=== PATIENT | male | born 1980 | race Two or more races ===

== ENCOUNTER 2020-09-05 20:22 | Emergency (ER) | payer SELFPAY ==
[~2020-09-05] VITALS: Ht 167.6 cm; Wt 99.1 kg
[2020-09-05] MEDS ORDERED: MAALOX/HYOSCYAMINE/LIDOCAINE 45 ML BTL ONE (21:23)
[2020-09-05] MEDS ORDERED: MAALOX/HYOSCYAMINE/LIDOCAINE 45 ML BTL PO ONE (21:30)
[2020-09-05 21:57] VITALS: BP 118/73
== END 2020-09-05 22:08 | disposition home or self-care (01) ==
LOC: ED 21:17
DX: R09.89 Other specified symptoms and signs involving the circulatory and respiratory systems (principal)
CPT/HCPCS: 70360; 99283